=== PATIENT | female | born 1990 | race Caucasian/White ===

== ENCOUNTER 2017-06-14 14:20 | Emergency (ER) | payer MEDICAID ==
[~2017-06-14] VITALS: Ht 162.6 cm; Wt 80.9 kg
[~2017-06-14 14:20] MED LIST: BUDE10.2 INH; CITA40TA12 PO; LEVO75TA5 PO
[2017-06-14 14:35] VITALS: BP 122/78
[2017-06-14] MEDS ORDERED: ALBUTEROL/IPRATROPIUM 2.5MG/0.5MG, 3 ML ONE (15:25)
[2017-06-14] MEDS ORDERED: ALBUTEROL/IPRATROPIUM 2.5MG/0.5MG, 3 ML NPPB SCH (15:30)
== END 2017-06-14 16:24 | disposition home or self-care (01) ==
LOC: ED 16:15
DX: O26.892 Other specified pregnancy related conditions, second trimester (principal); Z3A.19 19 weeks gestation of pregnancy; Z76.0 Encounter for issue of repeat prescription; J45.31 Mild persistent asthma with (acute) exacerbation
CPT/HCPCS: 94640; 99283; J7620

== ENCOUNTER 2017-06-25 11:53 | Emergency (ER) | payer MEDICAID ==
[~2017-06-25] VITALS: Ht 162.6 cm; Wt 82.6 kg
[2017-06-25 11:57] VITALS: BP 119/85
[2017-06-25] MEDS ORDERED: ALBUTEROL/IPRATROPIUM 2.5MG/0.5MG, 3 ML ONE (12:51)
[2017-06-25] MEDS ORDERED: ALBUTEROL/IPRATROPIUM 2.5MG/0.5MG, 3 ML NPPB ONE (13:00)
== END 2017-06-25 13:21 | disposition home or self-care (01) ==
LOC: ED 13:10
DX: O99.519 Diseases of the respiratory system complicating pregnancy, unspecified trimester (principal); Z3A.00 Weeks of gestation of pregnancy not specified; J45.31 Mild persistent asthma with (acute) exacerbation; E03.9 Hypothyroidism, unspecified; M54.9 Dorsalgia, unspecified; G89.29 Other chronic pain
CPT/HCPCS: 94640; 99283

== ENCOUNTER 2018-04-26 21:39 | Inpatient (IN) | payer MEDICAID, OTHER ==
[~2018-04-26] VITALS: Ht 162.6 cm; Wt 87.5 kg
[2018-04-26] MEDS ORDERED: SODIUM CHLORIDE 0.9% 1,000ML IVBOLUS ONE (23:00)
[2018-04-26] MEDS ORDERED: KETOROLAC 30 MG/1 ML IVPush ONE (23:00)
[2018-04-26] MEDS ORDERED: PROCHLORPERAZINE 5 MG/ML, 2ML IVPush ONE (23:00)
[2018-04-26] MEDS ORDERED: SODIUM CHLORIDE FLUSH 10ML SYR IVF ONE (23:00)
[2018-04-26 23:16] LABS: BASOPHILS # (AUTO) 0.03 x10^3/uL (0-0.1); BASOPHILS % (AUTO) 1 % (0-1); EOSINOPHILS # (AUTO) 0.02 x10^3/uL (0-0.4); EOSINOPHILS % (AUTO) 0 % (1-7); LYMPHOCYTES # (AUTO) 0.97 x10^3/uL (1-3.4); LYMPHOCYTES % (AUTO) 15 % (22-44); MD NO; MEAN CORPUSCULAR HEMOGLOBIN 31.6 pg (27.0-34.8); MEAN CORPUSCULAR VOLUME 92.8 fL (80-100); MONOCYTES # (AUTO) 0.46 x10^3/uL (0.2-0.8); MONOCYTES % (AUTO) 7 % (2-9); NEUTROPHILS % (AUTO) 77 % (42-75); PLATELET COUNT 252 x10^3/uL (130-400); RED BLOOD COUNT 4.71 x10^6/uL (3.82-5.3); RED CELL DISTRIBUTION WIDTH 19.2 % (9.6-15.2)
[2018-04-26] MEDS ORDERED: KETOROLAC 30 MG/1 ML ONE (23:18)
[2018-04-26] MEDS ORDERED: PROCHLORPERAZINE 5 MG/ML, 2ML ONE (23:18)
[2018-04-26 23:24] LABS: ALANINE AMINOTRANSFERASE 107 U/L (12-78); ALBUMIN 4.7 g/dL (3.4-5.0); ANION GAP 14 mmol/L (5-15); CALCIUM 8.9 mg/dL (8.5-10.1); CHLORIDE 103 mmol/L (98-107); CREATININE 0.87 mg/dL (0.55-1.02)
[2018-04-26 23:26] LABS: ALKALINE PHOSPHATASE 248 U/L (45-117); BILIRUBIN,TOTAL 0.5 mg/dL (0.2-1.0); TOTAL PROTEIN 9.3 g/dL (6.4-8.2)
[2018-04-26] MEDS ORDERED: OMNIPAQUE 350 MG/ML, 100ML BOTTLE ONE (23:58)
[2018-04-27] MEDS ORDERED: SODIUM CHLORIDE 0.9% 1,000ML IVBOLUS ONE (00:30)
[2018-04-27] MEDS ORDERED: OMEP-110 PO (00:33)
[2018-04-27 00:50] LABS: MICROSCOPIC INDICATED
[2018-04-27 00:51] LABS: AMPHETAMINE SCREEN, URINE Negative (Negative); BARBITURATE SCREEN, URINE Negative (Negative); BENZODIAZEPINE SCREEN, URINE Negative (Negative); CANNABINOID SCREEN, URINE Negative (Negative); COCAINE SCREEN, URINE Negative (Negative); METHADONE SCREEN, URINE Negative (Negative); OPIATE SCREEN, URINE Negative (Negative)
[2018-04-27 00:54] LABS: CULTURE INDICATED? NO
[2018-04-27] MEDS ORDERED: PROMETHAZINE 25 MG/ML, 1ML IM PRN (01:00)
[2018-04-27] MEDS ORDERED: KETOROLAC 30 MG/1 ML IVPush ONE (01:00)
[2018-04-27] MEDS ORDERED: PROMETHAZINE 25 MG/ML, 1ML IM ONE (01:00)
[2018-04-27] MEDS ORDERED: hydrALAzine 20 MG/ML, 1ML IVPush PRN (01:00)
[2018-04-27] MEDS ORDERED: KETOROLAC 30 MG/1 ML ONE (01:01)
[2018-04-27] MEDS ORDERED: PROMETHAZINE 25 MG/ML, 1ML ONE (01:05)
[2018-04-27 01:44] VITALS: BP 139/84
[2018-04-27] MEDS: D5%-0.9% NACL 1,000 ML IV SCH (02:35)
[2018-04-27 02:44] VITALS: BP 139/84
[2018-04-27] MEDS: POTASSIUM CHLORIDE 20 MEQ, MAGNESIUM SULFATE 2 GM, THIAMINE 100 MG, MVI ADULT 10 ML, FO... IV SCH (03:31)
[2018-04-27] MEDS: morphine SULFATE 10 MG/ML, 1ML IVPush PRN ×2 (03:32→09:42)
[2018-04-27] MEDS: KETOROLAC 30 MG/1 ML IVPush SCH ×4 (05:25→22:11)
[2018-04-27] MEDS: LORazepam 2 MG/ML, 1ML IVPush PRN ×4 (05:35→22:26)
[2018-04-27 05:57] LABS: BASOPHILS # (AUTO) 0.05 x10^3/uL (0-0.1); BASOPHILS % (AUTO) 1 % (0-1); EOSINOPHILS # (AUTO) 0.11 x10^3/uL (0-0.4); EOSINOPHILS % (AUTO) 2 % (1-7); LYMPHOCYTES # (AUTO) 1.29 x10^3/uL (1-3.4); LYMPHOCYTES % (AUTO) 24 % (22-44); MD NO; MEAN CORPUSCULAR HEMOGLOBIN 30.8 pg (27.0-34.8); MEAN CORPUSCULAR HGB CONC 33.2 g/dL (32.4-35.8); MEAN CORPUSCULAR VOLUME 92.7 fL (80-100); MEAN PLATELET VOLUME 7.7 fL (7.4-10.4); MONOCYTES % (AUTO) 11 % (2-9); NEUTROPHILS # (AUTO) 3.43 x10^3/uL (1.8-6.8); NEUTROPHILS % (AUTO) 63 % (42-75); PLATELET COUNT 223 x10^3/uL (130-400); RED CELL DISTRIBUTION WIDTH 19.8 % (9.6-15.2)
[2018-04-27] MEDS ORDERED: LEVOTHYROXINE 75 MCG TABLET PO SCH (06:00)
[2018-04-27 06:09] LABS: ALANINE AMINOTRANSFERASE 90 U/L (12-78); ANION GAP 9 mmol/L (5-15); CALCIUM 7.7 mg/dL (8.5-10.1); CHLORIDE 111 mmol/L (98-107); CREATININE 0.73 mg/dL (0.55-1.02)
[2018-04-27 06:13] LABS: ALKALINE PHOSPHATASE 207 U/L (45-117); BILIRUBIN,TOTAL 0.5 mg/dL (0.2-1.0); CHOL/HDL RATIO 1.4; CHOLESTEROL, TOTAL 196 mg/dL (140-239); HDL CHOL % 72 % (28-40); HDL CHOLESTEROL (DIRECT) 142 mg/dL (40-60); LDL CHOLESTEROL,CALCULATED 41 mg/dL (54-169); LDL/HDL RATIO 0.3 (0.5-3.0); TOTAL PROTEIN 7.8 g/dL (6.4-8.2); TRIGLYCERIDES 67 mg/dL (50-200); VLDL CHOLESTEROL 13 mg/dL (0-25)
[2018-04-27] MEDS ORDERED: POTASSIUM CHLORIDE 40 MEQ in SODIUM CHLORIDE 0.9% 500 ML IV ONE (07:00)
[2018-04-27] MEDS ORDERED: MAGNESIUM SULFATE PMX 2GM/50ML 50 ML IV ONE (07:00)
[2018-04-27] MEDS ORDERED: SODIUM PHOSPHATE 30 MMOL in SODIUM CHLORIDE 0.9% 500 ML IV ONE (07:00)
[2018-04-27 08:37] LABS: HEMOGLOBIN A1C 5.2 % (4.2-6.3)
[2018-04-27 09:02] VITALS: BP 149/91
[2018-04-27] MEDS: OMEPRAZOLE 20 MG CAPSULE.DR PO SCH (09:28)
[2018-04-27] MEDS: ENOXAPARIN 40 MG/0.4 ML SQ SCH (09:28)
[2018-04-27] MEDS: CITALOPRAM 20 MG TABLET PO SCH (09:28)
[2018-04-27] MEDS: CALCIUM CARBONATE 500 MG TABLET PO SCH ×3 (09:28→22:13)
[2018-04-27] MEDS: FLUTICASONE/VILANTEROL 200-25MCG/INH INH SCH (11:41)
[2018-04-27 13:28] VITALS: BP 157/98
[2018-04-27 20:30] VITALS: BP 149/102
[2018-04-27] MEDS: ONDANSETRON ODT 4 MG PO PRN (22:26)
[2018-04-28] MEDS: POTASSIUM CHLORIDE 20 MEQ, MAGNESIUM SULFATE 2 GM, THIAMINE 100 MG, MVI ADULT 10 ML, FO... IV SCH (02:15)
[2018-04-28] MEDS: D5%-0.9% NACL 1,000 ML IV SCH (02:17)
[2018-04-28 04:20] VITALS: BP 143/92
[2018-04-28] MEDS: LEVOTHYROXINE 88 MCG TABLET PO SCH (05:09)
[2018-04-28 05:37] LABS: INTERNATIONAL NORMALIZED RATIO 1.05 (0.93-1.1); PROTHROMBIN TIME 10.8 Seconds (9.6-11.5)
[2018-04-28 05:41] LABS: ALBUMIN 3.3 g/dL (3.4-5.0); ANION GAP 7 mmol/L (5-15); CALCIUM 7.8 mg/dL (8.5-10.1); CHLORIDE 113 mmol/L (98-107)
[2018-04-28 05:45] LABS: ALANINE AMINOTRANSFERASE 66 U/L (12-78); ALKALINE PHOSPHATASE 181 U/L (45-117); BILIRUBIN,TOTAL 1.2 mg/dL (0.2-1.0); CREATININE 0.64 mg/dL (0.55-1.02); TOTAL PROTEIN 6.9 g/dL (6.4-8.2)
[2018-04-28 05:52] LABS: BASOPHILS # (AUTO) 0.06 x10^3/uL (0-0.1); BASOPHILS % (AUTO) 1 % (0-1); EOSINOPHILS # (AUTO) 0.66 x10^3/uL (0-0.4); EOSINOPHILS % (AUTO) 15 % (1-7); LYMPHOCYTES # (AUTO) 1.09 x10^3/uL (1-3.4); LYMPHOCYTES % (AUTO) 25 % (22-44); MD NO; MEAN CORPUSCULAR HEMOGLOBIN 31.1 pg (27.0-34.8); MEAN CORPUSCULAR HGB CONC 33.5 g/dL (32.4-35.8); MEAN CORPUSCULAR VOLUME 92.7 fL (80-100); MEAN PLATELET VOLUME 8.4 fL (7.4-10.4); MONOCYTES # (AUTO) 0.36 x10^3/uL (0.2-0.8); MONOCYTES % (AUTO) 8 % (2-9); NEUTROPHILS # (AUTO) 2.28 x10^3/uL (1.8-6.8); NEUTROPHILS % (AUTO) 51 % (42-75); PLATELET COUNT 164 x10^3/uL (130-400); RED BLOOD COUNT 3.99 x10^6/uL (3.82-5.3); RED CELL DISTRIBUTION WIDTH 19.2 % (9.6-15.2)
[2018-04-28] MEDS ORDERED: POTASSIUM CHLORIDE 40 MEQ in SODIUM CHLORIDE 0.9% 500 ML IV ONE (06:00)
[2018-04-28 07:00] VITALS: BP 167/125
[2018-04-28] MEDS: FLUTICASONE/VILANTEROL 200-25MCG/INH INH SCH (08:54)
[2018-04-28] MEDS: CALCIUM CARBONATE 500 MG TABLET PO SCH ×3 (08:54→20:30)
[2018-04-28] MEDS: CITALOPRAM 20 MG TABLET PO SCH (08:55)
[2018-04-28] MEDS: OMEPRAZOLE 20 MG CAPSULE.DR PO SCH (08:55)
[2018-04-28] MEDS: ENOXAPARIN 40 MG/0.4 ML SQ SCH (08:55)
[2018-04-28] MEDS ORDERED: SODIUM PHOSPHATE 30 MMOL in SODIUM CHLORIDE 0.9% 500 ML IV ONE (09:30)
[2018-04-28] MEDS ORDERED: LORazepam 2 MG/ML, 1ML IV PRN ×4 (09:30)
[2018-04-28] MEDS: LORazepam 0.5MG TABLET PO PRN ×3 (09:31→20:37)
[2018-04-28] MEDS: ACETAMINOPHEN 325 MG TABLET PO PRN ×2 (09:31→15:49)
[2018-04-28] MEDS: ONDANSETRON ODT 4 MG PO PRN ×4 (09:35→23:29)
[2018-04-28 14:00] VITALS: BP 159/108
[2018-04-28 14:13] LABS: CLOSTRIDIUM DIFFICILE TOXIN NEGATIVE (Negative)
[2018-04-28 14:16] LABS: CLOSTRIDIUM DIFFICILE ANTIGEN POSITIVE
[2018-04-28] MEDS: VANCOMYCIN 50 MG/ML ORAL SUSP PO SCH ×2 (16:15→20:30)
[2018-04-28] MEDS: morphine SULFATE 10 MG/ML, 1ML IVPush PRN ×2 (16:57→20:45)
[2018-04-28 19:52] VITALS: BP 150/104
[2018-04-28 22:19] VITALS: BP 156/106
[2018-04-29 00:48] VITALS: BP 128/82
[2018-04-29] MEDS: POTASSIUM CHLORIDE 20 MEQ, MAGNESIUM SULFATE 2 GM, THIAMINE 100 MG, MVI ADULT 10 ML, FO... IV SCH (01:33)
[2018-04-29] MEDS: VANCOMYCIN 50 MG/ML ORAL SUSP PO SCH ×4 (02:16→21:59)
[2018-04-29] MEDS: LEVOTHYROXINE 88 MCG TABLET PO SCH (05:26)
[2018-04-29] MEDS: LORazepam 0.5MG TABLET PO PRN ×3 (05:26→18:22)
[2018-04-29 05:29] LABS: BASOPHILS # (AUTO) 0.05 x10^3/uL (0-0.1); BASOPHILS % (AUTO) 1 % (0-1); EOSINOPHILS # (AUTO) 0.66 x10^3/uL (0-0.4); EOSINOPHILS % (AUTO) 15 % (1-7); LYMPHOCYTES # (AUTO) 1.01 x10^3/uL (1-3.4); LYMPHOCYTES % (AUTO) 24 % (22-44); MD NO; MEAN CORPUSCULAR HEMOGLOBIN 30.8 pg (27.0-34.8); MEAN CORPUSCULAR VOLUME 93.4 fL (80-100); MEAN PLATELET VOLUME 8.5 fL (7.4-10.4); MONOCYTES # (AUTO) 0.28 x10^3/uL (0.2-0.8); MONOCYTES % (AUTO) 6 % (2-9); NEUTROPHILS # (AUTO) 2.31 x10^3/uL (1.8-6.8); NEUTROPHILS % (AUTO) 54 % (42-75); PLATELET COUNT 132 x10^3/uL (130-400); RED BLOOD COUNT 3.53 x10^6/uL (3.82-5.3); RED CELL DISTRIBUTION WIDTH 18.8 % (9.6-15.2)
[2018-04-29 05:36] LABS: ALANINE AMINOTRANSFERASE 85 U/L (12-78); ANION GAP 7 mmol/L (5-15); CALCIUM 7.6 mg/dL (8.5-10.1); CHLORIDE 110 mmol/L (98-107)
[2018-04-29] MEDS: ONDANSETRON ODT 4 MG PO PRN ×2 (05:36→09:55)
[2018-04-29] MEDS: morphine SULFATE 10 MG/ML, 1ML IVPush PRN ×4 (05:36→20:09)
[2018-04-29 05:38] LABS: CREATININE 0.58 mg/dL (0.55-1.02)
[2018-04-29 05:39] LABS: ALKALINE PHOSPHATASE 161 U/L (45-117); BILIRUBIN,TOTAL 0.8 mg/dL (0.2-1.0); TOTAL PROTEIN 6.2 g/dL (6.4-8.2)
[2018-04-29] MEDS ORDERED: POTASSIUM CHLORIDE 20 MEQ TAB.ER.PRT PO ONE (06:30)
[2018-04-29 06:41] VITALS: BP 145/99
[2018-04-29] MEDS: CALCIUM CARBONATE 500 MG TABLET PO SCH ×3 (08:14→20:09)
[2018-04-29] MEDS: CITALOPRAM 20 MG TABLET PO SCH (08:14)
[2018-04-29] MEDS: FLUTICASONE/VILANTEROL 200-25MCG/INH INH SCH (08:14)
[2018-04-29] MEDS: D5%-0.9% NACL 1,000 ML IV SCH ×2 (08:14→16:03)
[2018-04-29] MEDS: OMEPRAZOLE 20 MG CAPSULE.DR PO SCH (08:15)
[2018-04-29] MEDS: ENOXAPARIN 40 MG/0.4 ML SQ SCH (08:15)
[2018-04-29 12:31] VITALS: BP 147/101
[2018-04-29 19:18] VITALS: BP 152/112
[2018-04-30] MEDS: D5%-0.9% NACL 1,000 ML IV SCH
[2018-04-30] MEDS: POTASSIUM CHLORIDE 20 MEQ, MAGNESIUM SULFATE 2 GM, THIAMINE 100 MG, MVI ADULT 10 ML, FO... IV SCH (01:08)
[2018-04-30 01:15] VITALS: BP 141/100
[2018-04-30] MEDS: morphine SULFATE 10 MG/ML, 1ML IVPush PRN ×2 (03:12→08:35)
[2018-04-30] MEDS: VANCOMYCIN 50 MG/ML ORAL SUSP PO SCH (03:12)
[2018-04-30] MEDS: LEVOTHYROXINE 88 MCG TABLET PO SCH (05:10)
[2018-04-30] MEDS: LORazepam 0.5MG TABLET PO PRN (05:10)
[2018-04-30 05:43] LABS: BASOPHILS # (AUTO) 0.04 x10^3/uL (0-0.1); BASOPHILS % (AUTO) 1 % (0-1); EOSINOPHILS # (AUTO) 0.58 x10^3/uL (0-0.4); EOSINOPHILS % (AUTO) 13 % (1-7); LYMPHOCYTES # (AUTO) 1.29 x10^3/uL (1-3.4); LYMPHOCYTES % (AUTO) 28 % (22-44); MD NO; MEAN CORPUSCULAR HEMOGLOBIN 31.7 pg (27.0-34.8); MEAN CORPUSCULAR HGB CONC 33.5 g/dL (32.4-35.8); MEAN CORPUSCULAR VOLUME 94.7 fL (80-100); MEAN PLATELET VOLUME 8.6 fL (7.4-10.4); MONOCYTES # (AUTO) 0.36 x10^3/uL (0.2-0.8); MONOCYTES % (AUTO) 8 % (2-9); NEUTROPHILS # (AUTO) 2.33 x10^3/uL (1.8-6.8); NEUTROPHILS % (AUTO) 51 % (42-75); PLATELET COUNT 149 x10^3/uL (130-400); RED BLOOD COUNT 3.38 x10^6/uL (3.82-5.3); RED CELL DISTRIBUTION WIDTH 19.2 % (9.6-15.2)
[2018-04-30 05:45] LABS: ALBUMIN 3.1 g/dL (3.4-5.0); ANION GAP 8 mmol/L (5-15); CALCIUM 8.5 mg/dL (8.5-10.1); CHLORIDE 110 mmol/L (98-107)
[2018-04-30 05:47] LABS: CREATININE 0.58 mg/dL (0.55-1.02)
[2018-04-30 06:52] VITALS: BP 141/94
[2018-04-30] MEDS: OMEPRAZOLE 20 MG CAPSULE.DR PO SCH (08:35)
[2018-04-30] MEDS: CITALOPRAM 20 MG TABLET PO SCH (08:35)
[2018-04-30] MEDS: FLUTICASONE/VILANTEROL 200-25MCG/INH INH SCH (08:35)
[2018-04-30] MEDS: CALCIUM CARBONATE 500 MG TABLET PO SCH (08:35)
[2018-04-30] MEDS: ENOXAPARIN 40 MG/0.4 ML SQ SCH (09:00)
== END 2018-04-30 09:47 | disposition left against medical advice (07) | DRG 432 ==
LOC: ED 22:16 → SUATTDRO 04-27 00:59 → EDIP 04-27 01:09 → 4EST 04-27 01:34
PROVIDERS: ADMIT Hospitalist; ATTEND Hospitalist
DX: K70.10 Alcoholic hepatitis without ascites (principal); K85.20 Alcohol induced acute pancreatitis without necrosis or infection; A04.72 Enterocolitis due to Clostridium difficile, not specified as recurrent; F10.229 Alcohol dependence with intoxication, unspecified; E83.39 Other disorders of phosphorus metabolism; E03.9 Hypothyroidism, unspecified; E87.6 Hypokalemia; F17.210 Nicotine dependence, cigarettes, uncomplicated; J45.909 Unspecified asthma, uncomplicated; N92.6 Irregular menstruation, unspecified; Z90.49 Acquired absence of other specified parts of digestive tract; F29 Unspecified psychosis not due to a substance or known physiological condition; R73.9 Hyperglycemia, unspecified; Z88.8 Allergy status to other drugs, medicaments and biological substances; Z79.899 Other long term (current) drug therapy
CPT/HCPCS: 36415; 74177; 80048; 80053; 80061; 80074; 80307; 81001; 82040; 83036; 83690; 83735; 84100; 84443; 85025; 85610; 85730; 87324; 87493; 87521; 87522; 96361; 96372; 96374; 96375; J1650; J1885; J2550; J3370; J3411; J3475; J3480; J7042; Q0162; Q9967; J0360; J0780; J2060; J2270; J7030; J7040